=== PATIENT | male | born 1965 | race African-American/Black ===

== ENCOUNTER 2017-07-08 11:47 | Emergency (ER) ==
[2017-07-08 12:04] VITALS: BP 147/99; TEMP 97.9; BMI 30.2
--- NOTE | 2017-07-08 12:17 | ED.PDOC ---
General ED Provider: Dr. ETTA PALMER Chief Complaint: Abdominal Pain Stated Complaint: Ran a stress test 4 days ago. Yesterday began having an ache in his anterior left upper thigh. Early this AM became much more painful, expecially with walking, weight-bearing, or using stairs. No back pain. No GI/ sx. Time Seen by Physician: 12:15 Mode of Arrival: Walk-In Information Source: Patient Exam Limitations: No limitations Primary Care Provider: SUSHMA RODRIGUEZ Nursing and Triage Documentation Reviewed and Agree: Yes Musculoskeletal Complaint Exam - Lower Extremity Complaint/Exam Location of Pain: Reports: Left, Thigh Mechanism of Injury: Reports: Other (possibly from doing a stress test 4 days ago) Onset/Duration: yesterday Symptoms Are: Worse Onset of Pain: Reports: Days Initial Severity: Mild Current Severity: Severe Location: Reports: Diffuse Character: Reports: Sharp (with walking or using stairs), Aching, Throbbing Alleviating: Reports: Rest, Position (lying down) Aggravating: Reports: Movement, Weight bearing, Prolonged standing Able to Bear Weight: No (but pain is worse with weight-bearing) Related History: Denies: Similar episode, Occupational injury Septic Arthritis Risk Factors: Reports: None Related Surgical History: Reports: Back Surgery (lumbar spine) Lower Extremity Findings: Present: Tenderness (left upper anterior thigh is tender to palpation) NV Bundle Intact Distal to Injury: Yes Compartment Syndrome Risk Factors: Present: Pain Lane's Sign Present: No Differential Diagnoses: Strain, Sprain Review of Systems - Review Of Systems Constitutional: Reports: No symptoms Respiratory: Reports: No symptoms Cardiac: Reports: No symptoms GI: Reports: No symptoms : Reports: No symptoms Musculoskeletal: Reports: Muscle pain (left anterior upper thigh) Skin: Reports: No symptoms Neurological: Reports: No symptoms All Other Systems: Reviewed and Negative Past Medical History - Past Medical History Previously Healthy: Yes Endocrine: Reports: None Cardiovascular: Reports: Hypertension Respiratory: Reports: None Hematological: Reports: None Gastrointestinal: Reports: None Genitourinary: Reports: None Neuro/Psych: Reports: None Musculoskeletal: Reports: None Cancer: Reports: None - Surgical History General Surgical History: Reports: Orthopedic (low back right wrist) - Family History Family History: Reports: Unknown - Social History Smoking Status: Current some day smoker, Light tobacco smoker Amount Smokes or Chewing Tobacco Used Daily: occasional cigars, no cigarettes Hx Substance Use: No Alcohol Screening: None Lives: Alone - Immunizations Tetanus Shot up to Date: No Influenza Vaccine within 12 Months: No Pneumococcal Vaccine up to Date: No Physical Exam - Physical Exam Appearance: Well-appearing, Well-nourished Ill-appearing: None Pain Distress: Moderate Respiratory: Airway patent, Breath sounds clear, Breath sounds equal, Respirations nonlabored Cardiovascular: RRR, Pulses normal, No rub, No murmur GI/: Soft, Nontender, No masses, Bowel sounds normal, No Organomegaly Musculoskeletal: Normal strength, No edema, No calf tenderness (tender to palpation of right upper anterior thigh, no back tenderness), Limited ROM (SLR on left causes pain in left anyerior upper thigh at 30 degrees, SLR on right causes same site pain at 45 degrees) Skin: Warm, Dry, Normal color Neurological: Sensation intact, Motor intact, Reflexes intact, Cranial nerves intact, Alert, Oriented Psychiatric: Affect appropriate, Mood appropriate Critical Care Note - Critical Care Note Total Time (mins): 0 Course - Course Hematology/Chemistry: 07/08/17 12:26 Orders, Labs, Meds: Lab Review 07/08/17 07/08/17 12:05 12:26 WBC 5.89 RBC 5.28 Hgb 15.4 Hct 44.1 MCV 83.5 MCH 29.2 MCHC 34.9 RDW Coeff of Edgar 12.8 Plt Count 188 Immature Gran % (Auto) 0.3 Neut % (Auto) 48.5 Lymph % (Auto) 39.7 Tucker % (Auto) 8.8 Eos % (Auto) 2.0 Baso % (Auto) 0.7 Immature Gran # (Auto) 0.0 Neut # 2.9 Lymph # 2.3 Tucker # 0.5 Eos # 0.1 Baso # 0.0 Urine Color Dark Urine Clarity Clear Urine pH 5.5 Ur Specific [place] 1.025 Urine Protein Trace Urine Glucose (UA) Negative Urine Ketones Trace Urine Blood Negative Urine Nitrite Negative Urine Bilirubin 1+ Urine Urobilinogen 1.0 Ur Leukocyte Esterase Negative Urine Microscopic WBC 0-2 Ur Squamous Epith Cells 0-2 Orders Category Date Time Status CBC W/ AUTO DIFF Stat LAB 07/08/17 12:26 Completed COMPREHENSIVE METABOLIC PANEL Stat LAB 07/08/17 12:26 Received URINALYSIS C & S IF INDICATED Stat LAB 07/08/17 12:05 Completed Ketorolac Tromethamine [Toradol] MEDS 07/08/17 13:10 Discontinued 60 mg IM ONCE STA Medications Discontinued Medications Generic Name Dose Route Start Last Admin Trade Name [place] PRN Reason Stop Dose Admin Ketorolac Tromethamine 60 mg 07/08/17 13:10 Toradol IM 07/08/17 13:11 ONCE STA Vital Signs: Temp Pulse Resp BP Pulse Ox 07/08/17 11:47 97.9 F 79 16 147/99 H 96 Departure - Departure Time of Disposition: 13:18 Disposition: HOME SELF-CARE Discharge Problem: Muscle strain of left thigh Qualifiers: Encounter type: initial encounter Qualified Code(s): S76.912A - Strain of unspecified muscles, fascia and tendons at thigh level, left thigh, initial encounter Discharge Problem: (Ruled Out): Muscle strain of right thigh Instructions: Muscle Strain (ED) Condition: Good Pt referred to PMD for follow-up: No (If no better in 3 days) Additional Instructions: Avoid weight bearing on left leg for 3 days Allergies/Adverse Reactions: Allergies No Known Allergies Allergy (Unverified 07/08/17 11:57) Home Medications: Ambulatory Orders Acetaminophen with Codeine [Tylenol #3 Tab] 1 tab PO Q4H PRN #20 tablet Amlodipine Besylate [Norvasc] 5 mg PO DAILY 07/08/17 Aspirin [Aspirin EC] 325 mg PO DAILYWM 07/08/17 Cyclobenzaprine HCl [Flexeril] 10 mg PO TID #15 tablet 07/08/17 Losartan Potassium [Cozaar] 100 mg PO DAILY 07/08/17 Disposition Discussed With: Patient
[2017-07-08 12:34] LABS: BASOPHILS % (AUTO) 0.7 % (0.0-3.0); EOSINOPHILS # (AUTO) 0.1 K/ul (0.0-0.7); HEMATOCRIT 44.1 % (42.0-52.0); HEMOGLOBIN 15.4 g/dl (14.0-18.0); IMMATURE GRANULOCYTE % (AUTO) 0.3 % (0.0-5.0); LYMPHOCYTES # (AUTO) 2.3 K/uL (0.60-3.4); LYMPHOCYTES % (AUTO) 39.7 (10.0-50.0); MEAN CORPUSCULAR HEMOGLOBIN 29.2 pg (27.0-31.0); MEAN CORPUSCULAR HGB CONC 34.9 (31.8-35.4); MEAN CORPUSCULAR VOLUME 83.5 fl (80.0-94.0); MONOCYTES # (AUTO) 0.5 K/uL (0.4-2.0); MONOCYTES % (AUTO) 8.8 (0-10); NEUTROPHILS # (AUTO) 2.9 K/ul (2.0-6.9); NEUTROPHILS % (AUTO) 48.5; PLATELET COUNT 188 10^3/uL (140-440); RED BLOOD COUNT 5.28 10^6/ul (4.70-6.10); WHITE BLOOD COUNT 5.89 K/ul (4.2-10.2)
[2017-07-08 12:38] LABS: BILIRUBIN,URINE 1+ (NEGATIVE); KETONES,URINE Trace (NEGATIVE); LEUKOCYTE ESTERASE ,URINE Negative (NEGATIVE); NITRITE,URINE Negative (NEGATIVE); PH,URINE 5.5 (5-9); PROTEIN,URINE Trace (NEGATIVE); URINE, BLOOD Negative (NEGATIVE)
[2017-07-08 12:44] LABS: ADD URINE MICROSCOPIC YES
[2017-07-08 13:07] LABS: ALBUMIN 4.2 g/dL (3.4-5.0); ALBUMIN/GLOBULIN RATIO 1.11; BILIRUBIN,TOTAL 1.25 mg/dL (0.00-1.20); BUN/CREATININE RATIO 12.97; CALCIUM 9.6 mg/dL (8.2-10.2); CREATININE 1.31 mg/dL (0.60-1.10)
[2017-07-08] MEDS ORDERED: TORADOL IM STA (13:10)
== END 2017-07-08 13:35 | disposition home or self-care (01) ==
LOC: ED 11:47
DX: S76.912A Strain of unspecified muscles, fascia and tendons at thigh level, left thigh, initial encounter (principal); X50.1XXA Overexertion from prolonged static or awkward postures, initial encounter; F17.210 Nicotine dependence, cigarettes, uncomplicated
CPT/HCPCS: 36415; 80053; 81001; 85025; 96372; 99283